=== PATIENT | female | born 1970 | race African-American/Black ===

== ENCOUNTER 2023-03-10 05:28 | Emergency (ER) | payer OTHER ==
[~2023-03-10] VITALS: Ht 170.2 cm; Wt 68.0 kg
[2023-03-10] MEDS ORDERED: ONDANSETRON HCL/PF 4 MG/2 ML VIAL ONE (06:29)
[2023-03-10] MEDS ORDERED: MECLIZINE HCL 25 MG TABLET ONE (06:29)
[2023-03-10] MEDS ORDERED: IV NS 0.9% 1,000 ML BAG IV ONE (06:30)
[2023-03-10] MEDS ORDERED: ONDANSETRON HCL/PF 4 MG/2 ML VIAL IVP ONE (06:30)
[2023-03-10] MEDS ORDERED: MECLIZINE HCL 12.5 MG TABLET PO ONE (06:30)
[2023-03-10 07:02] LABS: BASOPHILS % (AUTO) 0.5 % (0.0-2.0); EOSINOPHILS % (AUTO) 0.7 % (0.0-6.0); HEMATOCRIT 38 % (33-45); HEMOGLOBIN 13.2 g/dL (11.5-14.8); LYMPHOCYTES # (AUTO) 1.3 K/uL (0.8-4.8); LYMPHOCYTES % (AUTO) 24.1 % (20.0-44.0); MEAN CORPUSCULAR HEMOGLOBIN 29 PG (26.0-33.0); MEAN CORPUSCULAR HGB CONC 35 g/dl (31.0-36.0); MEAN CORPUSCULAR VOLUME 84 fL (82-100); MONOCYTES # (AUTO) 0.4 K/uL (0.1-1.30); MONOCYTES % (AUTO) 6.9 % (2.0-12.0); NEUTROPHILS # (AUTO) 3.6 K/uL (1.8-8.9); NEUTROPHILS % (AUTO) 67.8 % (43.0-81.0); PLATELET COUNT (AUTO) 304 K/uL (150-450); RED BLOOD CELL COUNT(AUTO) 4.53 MIL/uL (4.0-5.2); RED CELL DISTRIBUTION WIDTH 14.9 % (11.5-15.0); WHITE BLOOD COUNT (AUTO) 5.3 K/uL (4.3-11.0)
[2023-03-10 07:15] LABS: CALCIUM, SERUM 8.2 mg/dL (8.5-10.1); CREATININE 0.7 mg/dL (0.6-1.3); POTASSIUM 3.7 mmol/L (3.5-5.1)
[2023-03-10 07:46] LABS: PREGNANCY TEST URINE QUAL NEGATIVE (NEGATIVE)
[2023-03-10] MEDS ORDERED: ONDA4TAB11 PO (08:44)
[2023-03-10 09:05] VITALS: BP 137/87; TEMP 98; O2SAT 100
== END 2023-03-10 09:31 | disposition home or self-care (01) ==
LOC: ER 05:33
DX: R42 Dizziness and giddiness (principal); R11.0 Nausea; R10.2 Pelvic and perineal pain; Z88.5 Allergy status to narcotic agent
CPT/HCPCS: 99283; 96374; 96361; 85025; 80048; 84703; 36415; J8597; J2405; J7030